=== PATIENT | male | born 1985 | race African-American/Black ===

== ENCOUNTER 2022-04-03 10:55 | Inpatient (IN) ==
[2022-04-03 12:08] LABS: Basophils # 0.1 K/mcL (0.0-0.2); Basophils % 0.5 %; Eosinophils # 0.4 K/mcL (0.0-0.6); Eosinophils % 4.2 %; Hemoglobin 15.2 g/dL (12.9-16.9); Immature Granulocytes % 0.3 % (0-4); Lymphocytes # 3.4 K/mcL (0.6-4.6); Lymphocytes % 36.8 %; Mean Corpuscular HGB Conc 32.3 g/dL (31.6-35.5); Mean Corpuscular Hemoglobin 27.3 pg (28.0-33.3); Mean Corpuscular Volume 84.5 fL (83.0-100.0); Mean Platelet Volume 10.5 fL (9.4-12.4); Monocytes # 0.7 K/mcL (0.0-1.3); Monocytes % 7.7 %; Neutrophils # 4.7 K/mcL (1.6-8.9); Platelet Count 349 K/mcL (140-400); Red Blood Count 5.56 M/mcL (4.19-5.50); Red Cell Distribution Width 13.7 % (11.5-14.5); Segmented Neutrophils % 50.5 %; White Blood Count 9.4 K/mcL (4.3-11.1)
[2022-04-03 12:28] LABS: Acetaminophen < 10 mcg/mL (10-20); Alanine Aminotransferase 18 Units/L (7-52); Albumin 4.4 g/dL (3.5-5.7); Albumin/Globulin Ratio 1.2 (1.1-2.2); Alkaline Phosphatase 111 Units/L (34-104); Aspartate Amino Transferase 20 Units/L (13-39); BUN/Creatinine Ratio 11 (6-26); Bilirubin,Indirect 0.4 mg/dL (0.0-1.0); Bilirubin,Total 0.4 mg/dL (0.3-1.0); Blood Urea Nitrogen 10 mg/dL (6-20); Calcium 9.1 mg/dL (8.6-10.3); Carbon Dioxide 27 mEq/L (23-29); Chloride 102 mEq/L (98-107); Chol/HDL Ratio 5.5 (0-4.9); Cholesterol 169 mg/dL (< 200); Ethanol < 10 mg/dL (Less than 10); Globulin 3.6 g/dL (2.4-3.5); Glucose 132 mg/dL (70-105); HDL Cholesterol 31 mg/dL (40-59); LDL Cholesterol,Calculated 89 mg/dL (< 100); Osmolality,Calculated 283 (280-300); Potassium 3.7 mEq/L (3.5-5.1); Salicylate < 2.5 mg/dL (15.0-30.0); Sodium 136 mEq/L (136-145); Triglycerides 246 mg/dL (< 150); eGFR For African Americans > 60 (> 60); eGFR For Non-African Americans > 60 (> 60)
[2022-04-03 12:35] LABS: Bacteria,Urine Few per hpf (None-Few); Bilirubin,Urine Negative (Negative); Blood,Urine Negative (Negative); Clarity,Urine Clear (Clear); Color,Urine Light-Yellow (Yellow); Glucose,Urine (UA) Normal (Normal); Hyaline Casts,Urine Few per lpf (None Seen); Ketones,Urine Negative (Negative); Leukocyte Esterase,Urine Negative (Negative); Mucus,Urine Few per lpf (None-Few); Nitrite,Urine Negative (Negative); Protein,Urine 50 mg/dL (Neg-Trace); Specific Gravity,Urine 1.014 (1.010-1.025); Squamous Epithelial Cell,Urine Few per hpf (None-Few); Urobilinogen,Urine Normal (Normal); WBC,Urine 0-3 per hpf (0-3)
[2022-04-03 12:47] LABS: Amphetamine Screen,Urine Negative ng/mL (Cutoff=1000); Barbiturate Screen,Urine Negative ng/mL (Cutoff=200); Benzodiazepines Screen,Urine Negative ng/mL (Cutoff=200); Cannabinoid Screen,Urine Negative ng/mL (Cutoff = 50); Cocaine Screen,Urine Negative ng/mL (Cutoff= 300); Opiate Screen,Urine Negative ng/mL (Cutoff=300); Phencyclidine Screen,Urine Negative ng/mL (Cutoff=25)
[2022-04-03 13:02] LABS: Estimated Average Glucose 134 mg/dl; Hemoglobin A1C 6.3 %
[2022-04-03 13:09] LABS: Influenza A PCR Negative (Negative); Influenza B PCR Negative (Negative); Resp. Syncytial Virus PCR Negative (Negative)
[2022-04-03 13:10] LABS: SARS-CoV-2 by PCR (In House) Negative (Negative)
[2022-04-03] MEDS ORDERED: *HR* LORazepam 1 MG TABLET PO ONE (15:05)
[2022-04-03] MEDS ORDERED: Perphenazine 8 MG TABLET PO STA (15:05)
[2022-04-03] MEDS ORDERED: Mag Hydrox/Al Hydrox/Simeth 30 ML UDC PO PRN (15:49)
[2022-04-03] MEDS ORDERED: *HR* LORazepam 1 MG TABLET PO PRN (15:49)
[2022-04-03] MEDS ORDERED: MOM Conc 10 ML UD.LIQ PO PRN (15:49)
[2022-04-03] MEDS ORDERED: haloperidoL 5 MG TABLET PO PRN (15:49)
[2022-04-03] MEDS ORDERED: Haloperidol Lactate 5 MG/ML VIAL IM PRN (15:49)
[2022-04-03] MEDS ORDERED: *HR* LORazepam 2 MG/ML VIAL IM PRN (15:49)
[2022-04-03] MEDS ORDERED: Acetaminophen 325 MG TABLET PO PRN (15:49)
[2022-04-04] MEDS: OLANZapine 10 MG TAB.RAPDIS PO SCH (21:49)
[2022-04-04] MEDS: Perphenazine 8 MG TABLET PO SCH (21:50)
[2022-04-05] MEDS: Perphenazine 8 MG TABLET PO SCH ×2 (10:43→21:43)
[2022-04-05] MEDS: Nicotine 21 MG PATCH.TD24 TD SCH (15:00)
[2022-04-05] MEDS: OLANZapine 10 MG TAB.RAPDIS PO SCH (21:44)
[2022-04-06] MEDS: Perphenazine 8 MG TABLET PO SCH ×2 (10:06→22:17)
[2022-04-06] MEDS: Nicotine 21 MG PATCH.TD24 TD SCH ×2 (10:07→10:16)
[2022-04-06] MEDS: OLANZapine 10 MG TAB.RAPDIS PO SCH (22:17)
[2022-04-07] MEDS: Perphenazine 8 MG TABLET PO SCH ×2 (08:27→21:24)
[2022-04-07] MEDS: Nicotine 21 MG PATCH.TD24 TD SCH (08:27)
[2022-04-07] MEDS ORDERED: Nicotine 2 MG GUM BC PRN (18:33)
[2022-04-07] MEDS: OLANZapine 10 MG TAB.RAPDIS PO SCH (21:24)
[2022-04-08] MEDS: Perphenazine 8 MG TABLET PO SCH ×2 (08:43→21:36)
[2022-04-08] MEDS ORDERED: Nicotine 2 MG GUM BC SCH (16:00)
[2022-04-08] MEDS: Nicotine 2 MG GUM BC PRN (17:13)
[2022-04-08] MEDS: OLANZapine 10 MG TAB.RAPDIS PO SCH (21:36)
[2022-04-09] MEDS: Perphenazine 8 MG TABLET PO SCH ×2 (11:08→21:06)
[2022-04-09] MEDS: Nicotine 2 MG GUM BC PRN (19:19)
[2022-04-09] MEDS: OLANZapine 10 MG TAB.RAPDIS PO SCH (21:06)
[2022-04-10] MEDS: Perphenazine 8 MG TABLET PO SCH ×2 (09:53→20:32)
[2022-04-10] MEDS: Nicotine 2 MG GUM BC PRN (19:52)
[2022-04-10] MEDS: OLANZapine 10 MG TAB.RAPDIS PO SCH (20:32)
[2022-04-11] MEDS: hydrOXYzine pamoate 25 MG CAPSULE PO PRN (09:31)
[2022-04-11] MEDS: Perphenazine 8 MG TABLET PO SCH ×2 (09:31→20:30)
[2022-04-11] MEDS: Nicotine 2 MG GUM BC PRN (16:36)
[2022-04-11] MEDS: OLANZapine 10 MG TAB.RAPDIS PO SCH (20:30)
[2022-04-12] MEDS: Perphenazine 8 MG TABLET PO SCH ×2 (08:26→20:48)
[2022-04-12] MEDS: Nicotine 2 MG GUM BC PRN ×2 (08:49→17:17)
[2022-04-12] MEDS: traZODone 50 MG TABLET PO PRN (20:48)
[2022-04-12] MEDS: hydrOXYzine pamoate 25 MG CAPSULE PO PRN (20:48)
[2022-04-12] MEDS: OLANZapine 10 MG TAB.RAPDIS PO SCH (20:48)
[2022-04-13] MEDS: Perphenazine 8 MG TABLET PO SCH ×2 (08:22→20:19)
[2022-04-13] MEDS: Nicotine 2 MG GUM BC PRN ×2 (08:26→20:23)
[2022-04-13] MEDS: OLANZapine 10 MG TAB.RAPDIS PO SCH (20:19)
[2022-04-13] MEDS: traZODone 50 MG TABLET PO PRN (20:19)
[2022-04-14] MEDS: Perphenazine 8 MG TABLET PO SCH ×2 (10:14→21:44)
[2022-04-14] MEDS: Nicotine 2 MG GUM BC PRN (18:39)
[2022-04-14] MEDS: OLANZapine 10 MG TAB.RAPDIS PO SCH (21:44)
[2022-04-15] MEDS: Perphenazine 8 MG TABLET PO SCH (09:19)
[2022-04-15 09:27] VITALS: BP 154/99; PULSE 113; TEMP 97.8; O2SAT 96
[2022-04-15] MEDS ORDERED: Paliperidone Palmitate 234 MG/1.5 ML SYRINGE IM SCH (12:00)
== END 2022-04-15 17:00 | disposition home health service (06) | DRG 885 ==
LOC: EMEROOARM 10:55 → INTOOBSV 15:40 → 1ANU 15:40 → SUATTDRO 04-04 20:00
PROVIDERS: ADMIT Psychiatry & Neurology Psychiatry; ATTEND Psychiatry & Neurology Forensic Psychiatry